=== PATIENT | female | born 2000 | race Caucasian/White ===

== ENCOUNTER 2023-01-04 17:20 | Emergency (ER) | payer OTHER ==
[~2023-01-04] VITALS: Ht 172.7 cm; Wt 55.7 kg
[2023-01-04 19:02] LABS: BASO % 0.2 % (0.0-1.0); EOS # 0.1 10^3/uL (0.0-0.5); EOS % 1.1 % (0.0-3.0); HEMATOCRIT 37.6 % (36.0-47.0); HEMOGLOBIN 13.1 g/dl (12.0-15.5); LYMPH # 1.6 10^3/uL (1.5-5.0); LYMPH % 17.7 % (24.0-44.0); MEAN CORPUSCULAR HEMOGLOBIN 31.8 pg (27.0-33.0); MEAN CORPUSCULAR HGB CONC 34.8 g/dl (32.0-36.5); MEAN CORPUSCULAR VOLUME 91.3 fl (80.0-96.0); MONO # 0.9 10^3/uL (0.0-0.8); MONO % 9.6 % (2.0-8.0); NEUTROPHILS # 6.5 10^3/uL (1.5-8.5); PLATELET COUNT, AUTOMATED 216 10^3/uL (150-450); RED BLOOD COUNT 4.12 10^6/uL (4.00-5.40); WHITE BLOOD COUNT 9.2 10^3/uL (4.0-10.0)
[2023-01-04 19:12] LABS: LIPASE 26 U/L (12-53)
[2023-01-04 19:14] LABS: ALBUMIN 4.6 G/DL (3.2-5.2); ALKALINE PHOSPHATASE 68 U/L (46-116); ALT/SGPT < 9 U/L (7.0-40); AST/SGOT < 8 U/L (<34); BILIRUBIN,DIRECT 0.4 MG/DL (<0.4); BILIRUBIN,TOTAL 1.1 MG/DL (0.3-1.2); TOTAL PROTEIN 7.5 G/DL (5.7-8.2)
[2023-01-04] MEDS ORDERED: KETOROLAC 30 MG/ML 1ML VIAL IV ONE (19:50)
[2023-01-04] MEDS ORDERED: ISOVUE-370 76% 100ML VIAL As Ordered ONE (19:57)
[2023-01-04 21:40] LABS: GC DNA AMPLIFICATION NEGATIVE (NEGATIVE)
[2023-01-04] MEDS ORDERED: CEPHALEXIN 500 MG CAP PO ONE (21:55)
[2023-01-04] MEDS ORDERED: CEPH500C PO (21:55)
[2023-01-04 22:03] VITALS: BP 112/62; TEMP 97.9; O2SAT 100
== END 2023-01-04 22:04 | disposition home or self-care (01) ==
LOC: M ED 17:20
DX: N39.0 Urinary tract infection, site not specified (principal); Z79.2 Long term (current) use of antibiotics
CPT/HCPCS: 36415; 74177; 80047; 80076; 81001; 83690; 84702; 85025; 87088; 87186; 87661; 87810; 87850; 96374; 99284; J1885; Q9967

== ENCOUNTER 2023-12-16 17:05 | Emergency (ER) | payer OTHER ==
[~2023-12-16] VITALS: Ht 172.7 cm; Wt 71.6 kg
[~2023-12-16 17:05] MED LIST: CEPH500C PO
[2023-12-16] MEDS ORDERED: MULTTAB20 PO (17:19)
[2023-12-16 20:00] VITALS: BP 116/56; TEMP 96.9; O2SAT 100
[2023-12-16 20:37] LABS: GC DNA AMPLIFICATION NEGATIVE (NEGATIVE)
[2023-12-16 20:45] LABS: Trichomonas vaginalis (AMP) NOT DETECTED (NEGATIVE)
== END 2023-12-16 20:53 | disposition home or self-care (01) ==
LOC: M ED 17:05
DX: O23.591 Infection of other part of genital tract in pregnancy, first trimester (principal); Z3A.09 9 weeks gestation of pregnancy; Z79.810 Long term (current) use of selective estrogen receptor modulators (SERMs)